=== PATIENT | male | born 1950 | race Caucasian/White ===

== ENCOUNTER 2018-03-04 12:37 | Observation (INO) | payer MEDICARE ==
--- NOTE | 2018-03-04 13:31 | ER ---
Nurse's Notes [facility] Name: Doug Ingram Age: 67 yrs Sex: Male : 1950 Arrival Date: 03/04/2018 Time: 12:40 Bed 13 Private MD: None, None Diagnosis: Torsion of testis Presentation: 03/04 13:05 Presenting complaint: Presenting complaint: Patient states: LLQ and testicular pain x 1 hb week, sent from radiology for poss testicular torsion. 13:08 Transition of care: patient was not received from another setting of care. Onset of hb symptoms is unknown. Initial Sepsis Screen: Does the patient meet any 2 criteria? No. Patient's initial sepsis screen is negative. Does the patient have a suspected source of infection? No. Patient's initial sepsis screen is negative. Care prior to arrival: None. 13:08 Method Of Arrival: Ambulatory hb 13:08 Acuity: CUAUHTEMOC 2 hb Historical: - Allergies: 13:10 caffeine; hb 13:10 Aspirin; hb - Home Meds: 14:00 atorvastatin oral oral [Active]; Glimepiride Oral [Active]; Metformin Oral [Active]; aa5 Naproxen Oral [Active]; pioglitazone oral oral [Active]; tamsulosin oral oral [Active]; Allopurinol Oral [Active]; cyanocobalamin (vitamin B-12) oral oral [Active]; Omeprazole Oral [Active]; - PMHx: 14:00 Diabetes - NIDDM; aa5 - PSHx: 14:00 None; aa5 - Immunization history:: Adult Immunizations up to date. - Social history:: Smoking status: Patient/guardian denies using tobacco. Screenin:40 Abuse screen: Denies threats or abuse. Nutritional screening: No deficits noted. aa5 Tuberculosis screening: No symptoms or risk factors identified. Fall Risk None identified. Assessment: 13:15 General: Appears comfortable, Behavior is calm, cooperative. Pain: Denies pain. Neuro: aa5 Level of Consciousness is awake, alert, obeys commands, Oriented to person, place, time, situation. Cardiovascular: Heart tones S1 S2 present Edema 3+ pitting edema noted to ladan lower extremities Rhythm is regular. Respiratory: Airway is patent Respiratory effort is even, unlabored, Respiratory pattern is regular, symmetrical. GI: No signs and/or symptoms were reported involving the gastrointestinal system. Patient currently denies nausea, vomiting. : No signs and/or symptoms were reported regarding the genitourinary system. EENT: No signs and/or symptoms were reported regarding the EENT system. Derm: Skin is pink, warm \\T\\ dry. Musculoskeletal: Range of motion: intact in all extremities. 14:00 Reassessment: Patient and/or family updated on plan of care and expected duration. Pain aa5 level reassessed. Patient is alert, oriented x 3, equal unlabored respirations, skin warm/dry/pink. 14:12 Reassessment: Report given to Yamileth Pat RN. aa5 14:29 Reassessment: Patient appears in no apparent distress at this time. Patient and/or ph family updated on plan of care and expected duration. Pain level reassessed. Patient is alert, oriented x 3, equal unlabored respirations, skin warm/dry/pink. Report given to OR, pt taken for surgery. Vital Signs: 13:06 BP 166 / 77; Pulse 82; Resp 16; Temp 98; Pulse Ox 96% on R/A; Pain 2/10; hb 14:00 BP 146 / 73; Pulse 73; Resp 18 S; Pulse Ox 98% on R/A; Pain 0/10; aa5 14:30 BP 147 / 79; Pulse 75; Resp 18; Temp 98.0; Pulse Ox 97% on R/A; ph ED Course: 12:40 Patient arrived in ED. mr 12:41 None, None is Private Physician. mr 13:09 Triage completed. hb 13:10 [facility] kb 13:10 Angel Diaz MD is Attending Physician. kb 13:10 Arm band placed on right wrist. hb 13:15 Patient has correct armband on for positive identification. aa5 13:25 Initial lab(s) drawn, by me, sent to lab. Inserted saline lock: 20 gauge in right aa5 forearm, using aseptic technique. Blood collected. 13:30 Elena Laboy MD is Hospitalizing Provider. kb 13:51 EKG done, by fiberglass technician. reviewed by Teresa DAWN. dt2 14:04 No provider procedures requiring assistance completed. aa5 14:20 Yamileth Pat RN is Primary Nurse. ph 14:21 X-ray completed. Portable x-ray completed in exam room. Patient tolerated procedure jb2 well. 14:32 Patient admitted, IV remains in place. ph Administered Medications: 13:25 Drug: D50W 50 ml Route: IVP; Site: right forearm; aa5 14:31 Follow up: Response: No adverse reaction; Blood sugar is elevated ph 13:30 Drug: D5-1/2 NS 1000 ml Route: IV; Rate: 75 ml; Site: right forearm; aa5 14:31 Follow up: IV Status: Infusion continued upon admission ph 13:40 Drug: Ancef 1 grams Route: IVPB; Site: right forearm; aa5 14:01 Follow up: Response: No adverse reaction; IV Status: Completed infusion; administered aa5 IVP per Hospital over 5 minutes. 13:55 Not Given (Other Intervention Used): NS 0.9% 1000 ml IV at 125 ml/hr continuous aa5 Point of Care Testing: Blood Glucose: 13:23 Blood Glucose: 46 mg/dL; aa5 14:12 Blood Glucose: 137 mg/dL; aa5 13:23 LABORER SAWMILL notified. Pt c/o feeling shaky, pt states "the last time I ate was around 7 am" aa5 Ranges: Intake: Outcome: 13:30 Decision to Hospitalize by Provider. kb 14:31 Admitted to OR accompanied by tech, via stretcher, with chart. ph 14:31 Condition: stable 14:31 Instructed on the need for admit. 14:32 Patient left the ED. ph Signatures: Teresa Garcia, LANDSCAPE ARCHITECT-C LANDSCAPE ARCHITECT-Ckb PuckettCarleen All Mcmahon jb2 Leonela Shea, RN RN aa5 Yamileth Pat RN RN ph Lorene Helms, JAVAD RN Regina Olmedo dt2 Corrections: (The following items were deleted from the chart) 13:09 13:05 Presenting complaint: hb hb 13:15 13:08 Acuity: CUAUHTEMOC 3 hb hb 13:16 13:05 Presenting complaint: Patient states: LLQ and testicular pain x 1 week Presenting hb complaint: Patient states: LLQ and testicular pain x 1 week hb 14:06 13:23 Blood Glucose: Notes=LABORER SAWMILL notified, Blood Glucose Reading=46 mg/dL. aa5 aa5
--- NOTE | 2018-03-04 13:31 | EDPHYS ---
Physician Documentation [facility] Name: Doug Ingram Age: 67 yrs Sex: Male : 1950 Arrival Date: 03/04/2018 Time: 12:40 Bed 13 Private MD: None, None ED Physician Angel Diaz HPI: 03/04 14:16 This 67 yrs old Male presents to ER via Ambulatory with complaints of kb Testicular Pain. 14:16 The patient presents with scrotal pain, of the left side. Onset: The symptoms/episode kb began/occurred last week. Modifying factors: The symptoms are alleviated by nothing, the symptoms are aggravated by nothing. Associated signs and symptoms: The patient has no apparent associated signs or symptoms. Severity of symptoms: At their worst the symptoms were severe, in the emergency department the symptoms are unchanged. The patient has not experienced similar symptoms in the past. The patient has not recently seen a physician. Pt reports left testicular pain that started last week and was intermittent. Today, pain became more severe and constant. Had outpatient US and was diagnosed with torsion and told to come to ER. . Historical: - Allergies: 13:10 caffeine; hb 13:10 Aspirin; hb - Home Meds: 14:00 atorvastatin oral oral [Active]; Glimepiride Oral [Active]; Metformin Oral [Active]; aa5 Naproxen Oral [Active]; pioglitazone oral oral [Active]; tamsulosin oral oral [Active]; Allopurinol Oral [Active]; cyanocobalamin (vitamin B-12) oral oral [Active]; Omeprazole Oral [Active]; - PMHx: 14:00 Diabetes - NIDDM; aa5 - PSHx: 14:00 None; aa5 - Immunization history:: Adult Immunizations up to date. - Social history:: Smoking status: Patient/guardian denies using tobacco. ROS: 14:16 Constitutional: Negative for fever, chills, and weight loss, Cardiovascular: Negative kb for chest pain, palpitations, and edema, Respiratory: Negative for shortness of breath, cough, wheezing, and pleuritic chest pain, Abdomen/GI: Negative for abdominal pain, nausea, vomiting, diarrhea, and constipation, MS/Extremity: Negative for injury and deformity, Skin: Negative for injury, rash, and discoloration, Neuro: Negative for headache, weakness, numbness, tingling, and seizure. 14:57 : Positive for testicular pain kb Exam: 14:57 Constitutional: This is a well developed, well nourished patient who is awake, alert, kb and in no acute distress. Head/Face: Normocephalic, atraumatic. Neck: Trachea midline, no thyromegaly or masses palpated, and no cervical lymphadenopathy. Supple, full range of motion without nuchal rigidity, or vertebral point tenderness. No Meningismus. Chest/axilla: Normal chest wall appearance and motion. Nontender with no deformity. No lesions are appreciated. Cardiovascular: Regular rate and rhythm with a normal S1 and S2. No gallops, murmurs, or rubs. Normal PMI, no JVD. No pulse deficits. Respiratory: Lungs have equal breath sounds bilaterally, clear to auscultation and percussion. No rales, rhonchi or wheezes noted. No increased work of breathing, no retractions or nasal flaring. Abdomen/GI: Soft, non-tender, with normal bowel sounds. No distension or tympany. No guarding or rebound. No evidence of tenderness throughout. Skin: Warm, dry with normal turgor. Normal color with no rashes, no lesions, and no evidence of cellulitis. MS/ Extremity: Pulses equal, no cyanosis. Neurovascular intact. Full, normal range of motion. Neuro: Awake and alert, GCS 15, oriented to person, place, time, and situation. Cranial nerves II-XII grossly intact. Motor strength 5/5 in all extremities. Sensory grossly intact. Cerebellar exam normal. Normal gait. Vital Signs: 13:06 BP 166 / 77; Pulse 82; Resp 16; Temp 98; Pulse Ox 96% on R/A; Pain 2/10; hb 14:00 BP 146 / 73; Pulse 73; Resp 18 S; Pulse Ox 98% on R/A; Pain 0/10; aa5 14:30 BP 147 / 79; Pulse 75; Resp 18; Temp 98.0; Pulse Ox 97% on R/A; ph MDM: 13:11 Patient medically screened. kb 13:24 Data reviewed: vital signs, nurses notes. Data interpreted: Pulse oximetry: on room air kb is 96 %. Interpretation: normal. Counseling: I had a detailed discussion with the patient and/or guardian regarding: the historical points, exam findings, and any diagnostic results supporting the discharge/admit diagnosis, lab results, radiology results, the need for further work-up and treatment in the hospital. Physician consultation: Jamil Sifuentes MD was contacted at 13:26, regarding consult, patient's condition, in the emergency department to see patient at 13:26. 03/04 13:24 Order name: CBC with Diff; Complete Time: 14:09 kb 03/04 13:24 Order name: Basic Metabolic Panel; Complete Time: 14:09 kb 03/04 13:24 Order name: Chest Single View XRAY kb 03/04 13:24 Order name: IV Start; Complete Time: 13:41 kb 03/04 13:24 Order name: EKG; Complete Time: 13:25 kb 03/04 13:24 Order name: EKG - Nurse/Tech; Complete Time: 13:41 kb 03/04 13:30 Order name: NPO; Complete Time: 13:41 kb 03/04 13:37 Order name: CONS Physician Consult; Complete Time: 13:55 EDMS Administered Medications: 13:25 Drug: D50W 50 ml Route: IVP; Site: right forearm; aa5 14:31 Follow up: Response: No adverse reaction; Blood sugar is elevated ph 13:30 Drug: D5-1/2 NS 1000 ml Route: IV; Rate: 75 ml; Site: right forearm; aa5 14:31 Follow up: IV Status: Infusion continued upon admission ph 13:40 Drug: Ancef 1 grams Route: IVPB; Site: right forearm; aa5 14:01 Follow up: Response: No adverse reaction; IV Status: Completed infusion; administered aa5 IVP per Hospital over 5 minutes. 13:55 Not Given (Other Intervention Used): NS 0.9% 1000 ml IV at 125 ml/hr continuous aa5 Point of Care Testing: Blood Glucose: 13:23 Blood Glucose: 46 mg/dL; aa5 14:12 Blood Glucose: 137 mg/dL; aa5 13:23 SAFETY GROOVING MACHINE OPERATOR notified. Pt c/o feeling shaky, pt states "the last time I ate was around 7 am" aa5 Ranges: Critical Glucose Levels:Adult <50 mg/dl or >400 mg/dl <40 mg/dl or >180 mg/dl Disposition: 20:55 Co-signature as Attending Physician, Angel Diaz MD. rn Disposition: 03/04/18 13:30 Hospitalization ordered by Elena Laboy for Observation. Preliminary diagnosis is Torsion of testis. - Bed requested for Telemetry/MedSurg (observation). - Status is Observation. ph - Condition is Stable. - Problem is new. - Symptoms are unchanged. UTI on Admission? No Signatures: Dispatcher [employer] EDMS Teresa Garcia, NAVAL AIRCREWMAN MECHANICAL-C NAVAL AIRCREWMAN MECHANICAL-Ckb Onelia marroquin Angel Gary MD MD rn Calderon, Audri RN RN aa Yamileth Pat RN RN Lorene Helms, RN RN Corrections: (The following items were deleted from the chart) 14:31 13:30 Hospitalization Ordered by Elena Laboy MD for Observation. Preliminary bd diagnosis is Torsion of testis. Bed requested for Telemetry/MedSurg (observation). Status is Observation. Condition is Stable. Problem is new. Symptoms are unchanged. UTI on Admission? No. kb 14:32 14:31 03/04/2018 13:30 Hospitalization Ordered by Elena Laboy MD for Observation. ph Preliminary diagnosis is Torsion of testis. Bed requested for Telemetry/MedSurg (observation). Status is Observation. Condition is Stable. Problem is new. Symptoms are unchanged. UTI on Admission? No. bd 14:57 14:16 Constitutional: Negative for fever, chills, and weight loss, Cardiovascular: kb Negative for chest pain, palpitations, and edema, Respiratory: Negative for shortness of breath, cough, wheezing, and pleuritic chest pain, Abdomen/GI: Negative for abdominal pain, nausea, vomiting, diarrhea, and constipation, MS/Extremity: Negative for injury and deformity, Skin: Negative for injury, rash, and discoloration, Neuro: Negative for headache, weakness, numbness, tingling, and seizure, kb
[2018-03-04] MEDS ORDERED: D50W 25 GM/50 ML SYRINGE IV ONE ×2 (13:36→16:31)
[2018-03-04] MEDS ORDERED: CEFAZOLIN/SWI 1gm 1 GM/10 ML SYR ONE (13:47)
[2018-03-04] MEDS ORDERED: D5 0.45 NS 1,000 ML IV ONE (13:47)
[2018-03-04 13:53] LABS: Absolute Lymphocytes (CBC) 2.2 K/uL (0.7-4.9); Absolute Monocytes 0.4 K/uL (0.1-1.3); Basophils % 0.4 % (0-1.3); Hematocrit 38.4 % (39.6-49.0); MPV 7.8 fL (7.6-11.3); Monocytes % 7.5 % (3.3-12.3); RBC Red Blood Cell Count 4.04 M/uL (4.33-5.43)
[2018-03-04 14:04] LABS: Potassium 3.9 mEq/L (3.6-5.0)
[2018-03-04] MEDS ORDERED: NA CHLORIDE 0.9% 1,000 ML ONE ×2 (14:38→16:26)
--- NOTE | 2018-03-04 14:38 | EKG ---
Test Date: 2018-03-04 Test Time: 13:35:43 Child Life Specialist: EZEKIEL MEASUREMENT RESULTS: Intervals: Rate: 72 NC: 150 QRSD: 100 QT: 380 QTc: 416 [place]: P: 45 NC: 150 QRS: 8 T: 43 INTERPRETIVE STATEMENTS: Normal sinus rhythm Moderate voltage criteria for LVH, may be normal variant Borderline ECG Compared to ECG 04/21/2010 11:10:51 No significant changes Electronically Signed On 03-04-18 14:38:18 CDT by Amol Powers
[2018-03-04] MEDS ORDERED: NA CIT/CITRIC AC 30 ML ORAL UDC ONE (14:41)
[2018-03-04] MEDS ORDERED: PROPOFOL 200 MG/20 ML VIAL IV ONE (14:53)
[2018-03-04] MEDS ORDERED: FENTANYL CITR 100 MCG/2 ML ONE (14:54)
[2018-03-04] MEDS ORDERED: LIDOCAINE 1% MPF 5 ML VIAL ONE (14:54)
--- NOTE | 2018-03-04 15:23 | P.HP ---
Certification for Inpatient Patient admitted to: Inpatient With expected LOS: >2 Midnights Patient will require the following post-hospital care: None Practitioner: I am a practitioner with admitting privileges, knowledge of patient current condition, hospital course, and medical plan of care. Services: Services provided to patient in accordance with Admission requirements found in Title 42 Section 412.3 of the Code of Federal Regulations Patient History Date of Service: 03/04/18 Primary Care Provider: None Reason for admission: Testicular Torsion History of Present Illness: This is a 67-year-old male with significant past medical history of type 2 diabetes who presented to the ED complaining of having some testicular pain about 1 week ago. Patient stated that the pain started as Dull and progressed to a sharp shooting pain in progressively got worse. Patient stated that initially he only had pain however started noticing some swelling as well around the area. The patient denies having any fever chills nausea vomiting abdominal pain or any other associated symptoms at this time. Patient is that this is the 1st time it has happened and headaches worse pain is 9/10. Patient states that it feels like someone is punching him every time he moves. In the ED patient had an ultrasound of the scrotal area which was consistent testicular Torsion and thus was admitted for further care. Allergies aspirin Allergy (Verified 01/14/15 14:13) Anaphylaxis caffeine Allergy (Verified 01/14/15 14:13) Shortness of breath Home Medications: Glimepiride [Amaryl*] 2 mg PO DAILY 01/14/15 Hydrochlorothiazide [Hydrochlorothiazide*] 12.5 mg PO DAILY 01/14/15 Metformin HCl [Metformin HCl ER] 1,000 mg PO BID 01/14/15 Omeprazole 20 mg PO DAILY 01/14/15 Sod Chloride/Jony/Mo/Pet,Wh [Lubriderm Daily Moisture Lot] 177 ml TP BID Spironolactone 25 mg PO BID 01/14/15 Tamsulosin [Flomax] 0.4 mg PO DAILY 01/14/15 - Past Medical/Surgical History Diabetic: Yes -: DM -: Gout -: GERD -: HTN -: Obesity - Social History Alcohol use: No Review of Systems General: As per HPI Physical Examination - Vital Signs Temperature: 98.0 F Blood Pressure: 147/79 Pulse: 75 Respirations: 18 - Physical Exam General: Alert, Oriented x3, Acute distress HEENT: Atraumatic Neck: Supple Respiratory: Clear to auscultation bilaterally, Normal air movement Cardiovascular: Regular rate/rhythm, Normal S1 S2 Gastrointestinal: Normal bowel sounds, No tenderness Musculoskeletal: No tenderness Integumentary: No rashes Neurological: Abnormal speech, Abnormal strength, Abnormal tone Lymphatics: No axilla or inguinal lymphadenopathy External genitalia: Edema, Tenderness - Studies Laboratory Data (last 24 hrs) 03/04/18 13:25: Sodium 140, Potassium 3.9, BUN 22 H, Creatinine 0.92, Glucose 66 03/04/18 13:25: WBC 5.8, Hgb 12.9 L, Hct 38.4 L, Plt Count 176 Assessment and Plan - Problems (Diagnosis) (1) Testicular torsion Current Visit: Yes Status: Acute Plan: Testicular Torsion on the CT -Urology Consulted. Pt is scheduled for OR procedure right now -IV fluids and NPO for now -Pain mgmt -IV abx (2) Diabetes Current Visit: No Status: Chronic Plan: Insulin Sliding scale Qualifiers: Diabetes mellitus type: type 2 Diabetes mellitus long-term insulin use: without intermodal owner operator truck driver use Diabetes mellitus complication status: without complication Qualified Code(s): E11.9 - Type 2 diabetes mellitus without complications (3) GERD (gastroesophageal reflux disease) Current Visit: No Status: Chronic Plan: Protonix Qualifiers: Esophagitis presence: without esophagitis Qualified Code(s): K21.9 - Gastro -esophageal reflux disease without esophagitis (4) Gout Current Visit: No Status: Chronic Plan: Restart Allopurinol Qualifiers: Gout site: unspecified site Gout etiology: unspecified cause Chronicity: unspecified Qualified Code(s): M10.9 - Gout, unspecified (5) Hypertension Current Visit: No Status: Chronic Plan: Restart Home medication Qualifiers: Hypertension type: essential hypertension Qualified Code(s): I10 - Essential (primary) hypertension Discharge Plan: Other Plan to discharge in: 48 Hours - Advance Directives Does patient have a Living Will: No Does patient have a Durable POA for Healthcare: No - Code Status/Comfort Care Code Status Assessed: Yes Critical Care: No
[2018-03-04] MEDS ORDERED: DEXAMETHASONE 10 MG/ML VIAL ONE (15:33)
[2018-03-04] MEDS ORDERED: KETOROLAC 30 MG/ML INJ ONE (15:34)
[2018-03-04] MEDS ORDERED: ONDANSETRON HCL 40 MG/20 ML VIAL ONE (15:34)
--- NOTE | 2018-03-04 15:39 | RAD REPORT ---
EXAM DESCRIPTION: Jodi Single View03/04/2018 2:31 pm CLINICAL HISTORY: Abdominal pain/preop COMPARISON: 2009 FINDINGS: The lungs appear clear of acute infiltrate. The heart is normal size. Aorta is tortuous/e ctatic IMPRESSION: No acute abnormalities displayed
[2018-03-04] MEDS ORDERED: Morphine 2 MG/2 ML SYR IV PRN (16:50)
[2018-03-04] MEDS ORDERED: ACETAMINOPHEN 500 MG TAB PO PRN (16:50)
[2018-03-04] MEDS ORDERED: HYDROCODONE/APAP 5/325 MG TAB PO PRN (16:50)
[2018-03-04] MEDS ORDERED: GLUCAGON 1 MG/VIAL IM PRN (16:50)
[2018-03-04] MEDS: INSULIN -REGULAR HUMAN 50 UNIT/0.5 ML ML SQ SCH ×2 (16:50→22:06)
[2018-03-04] MEDS ORDERED: ONDANSETRON 4 MG/2 ML VIAL IV PRN (16:50)
[2018-03-04] MEDS ORDERED: D50W 25 GM/50 ML SYRINGE IV PRN (16:50)
[2018-03-04 17:27] VITALS: BMI 33.3
[2018-03-04] MEDS: D5 0.45 NS 1,000 ML IV SCH (17:49)
--- NOTE | 2018-03-04 18:02 | CON ---
History Of Present Illness: Mr. Stone is a pleasant 67-year-old [facility] patient. He said for the last week or so, his left testicle has been hurting, will hurt for a while, and then stop hurting, but for the last 2 weeks, he has been doing that. He was seen by primary care in [place] and examined him for hernia. Everything was fine. Then, this morning, he woke up again with the pain. It did last f or a while and then stopped. He came in, had a Doppler ultrasound done showed no flow on the left si de, smaller testicle, about 2-3 cm. Right testis is about 4-3 cm. Past Medical History: Diabetes, gout, gastritis, cholesterol, and BPH. Medications: He takes medications; acetaminophen, allopurinol, B12, omeprazole, atorvastatin, glimep iride, metoprolol, Naprosyn, pioglitazone, and tamsulosin. Past Surgical History: None. Family History: He is adopted. None. Social History: Does not smoke, drink, or do any drugs. Allergies: TO CAFFEINE CAUSE ANAPHYLAXIS AND ASPIRIN CAUSES A RASH. Review of Systems: Ten-point review of system otherwise normal. No nausea, no vomiting. Physical Examination: HEENT: Atraumatic, normocephalic. Vital signs: Stable. Lungs: Clear. Abdomen: Soft, nontender. : Left testicle is smaller than the right. It is not twisted. Not painful. No hernia palpable. LEIGHTON: Deferred. Laboratories: Pending. Assessment: Intermittent left torsion. Plan: Plan is for scrotal exploration, possible orchiectomy, possible bilateral orchiopexies, and an y indicated procedures. The patient knows the risks and benefits and wishes to proceed. DEBBY/MARILUZ Voice ID: [id number] Report ID: [id number]
[2018-03-04] MEDS ORDERED: CEFAZOLIN/NS 1gm 1 GM/50 ML BAG IVPB SCH (22:00)
[2018-03-04 22:30] LABS: Urine Appearance CLEAR; Urine Bilirubin NEGATIVE (NEG); Urine Blood 2+ (NEG); Urine Color YELLOW; Urine Glucose 1+ (NEG); Urine Protein NEGATIVE (NEG); Urine Specific Gravity 1.015 (1.005-1.030)
[2018-03-04 22:58] LABS: Urine Microscopic Reflex ORDER UMIC
[2018-03-04 23:06] LABS: Urine Bacteria <20 /HPF (NONE SEEN); Urine Culture Reflex Order REFLEXED
[2018-03-05] MEDS: CEFAZOLIN/SWI 1gm 1 GM/10 ML SYR IV SCH ×2 (01:00→09:34)
[2018-03-05 04:51] VITALS: O2SAT 94
[2018-03-05 05:00] LABS: Absolute Lymphocytes (CBC) 0.8 K/uL (0.7-4.9); Absolute Monocytes 0.1 K/uL (0.1-1.3); Absolute Neutrophil 6.9 K/uL (1.8-8.0); Basophils % 0.1 % (0-1.3); Hematocrit 38.3 % (39.6-49.0); Lymphocytes % 10.1 % (15.3-44.8); MCH 32.1 pg (27.0-35.0); MCV 95.2 fL (80-100); MPV 8.2 fL (7.6-11.3); Monocytes % 1.3 % (3.3-12.3); RBC Red Blood Cell Count 4.02 M/uL (4.33-5.43)
[2018-03-05 05:23] LABS: Potassium 4.3 mEq/L (3.6-5.0)
[2018-03-05 05:51] LABS: Blood Morphology Comment NOT SEEN (NOT SEEN); Platelet Estimate ADEQ; Urine White Blood Cell Casts OK
[2018-03-05] MEDS: D5 0.45 NS 1,000 ML IV SCH (06:08)
[2018-03-05] MEDS: INSULIN -REGULAR HUMAN 50 UNIT/0.5 ML ML SQ SCH (09:34)
[2018-03-05 10:15] VITALS: BP 129/60; TEMP 98.3
--- NOTE | 2018-03-05 14:13 | PN ---
Subjective: The Patient feels great. He is experiencing no more pains in the scrotum like before. Objective: Vital Signs: 98 temperature, 88 pulse, 16 respirations, 130/70 BP, and 95% sat. Pain 0/ 10. Urine output good. Aguilar catheter was removed this morning. : Wound intact. Claude drains intact bilaterally. Dressing was still soaked, was changed at 6:00 a.m. Therefore, we will change it again and sent home on dressing changes and hopefully remove it tomorrow in the office. DEBBY/MARILUZ Voice ID: [id number] Report ID: [id number]
--- NOTE | 2018-03-05 14:29 | P.SSS ---
Patient History Date of Service: 03/05/18 Primary Care Provider: None Reason for admission: Testicular Torsion History of Present Illness: This is a 67-year-old male with significant past medical history of type 2 diabetes who presented to the ED complaining of having some testicular pain about 1 week ago. Patient stated that the pain started as Dull and progressed to a sharp shooting pain in progressively got worse. Patient stated that initially he only had pain however started noticing some swelling as well around the area. The patient denies having any fever chills nausea vomiting abdominal pain or any other associated symptoms at this time. Patient is that this is the 1st time it has happened and headaches worse pain is 9/10. Patient states that it feels like someone is punching him every time he moves. In the ED patient had an ultrasound of the scrotal area which was consistent testicular Torsion and thus was admitted for further care. Allergies aspirin Allergy (Verified 03/04/18 17:30) Anaphylaxis caffeine Allergy (Verified 03/04/18 17:30) Shortness of breath Home Medications: Glimepiride [Amaryl*] 2 mg PO DAILY 01/14/15 Hydrochlorothiazide [Hydrochlorothiazide*] 12.5 mg PO DAILY 01/14/15 Metformin HCl [Metformin HCl ER] 1,000 mg PO BID 01/14/15 Omeprazole 20 mg PO DAILY 01/14/15 Sod Chloride/Jony/Mo/Pet,Wh [Lubriderm Daily Moisture Lot] 177 ml TP BID Spironolactone 25 mg PO BID 01/14/15 Tamsulosin [Flomax] 0.4 mg PO DAILY 01/14/15 Cephalexin [Keflex] 500 mg PO Q6HR #12 cap 03/05/18 traMADol HCL [Ultram] 50 mg PO Q6H PRN #12 tab 03/05/18 - Past Medical/Surgical History Has patient received pneumonia vaccine in the past: Yes Diabetic: Yes -: DM -: Benign Prostate Hypertrophy -: Lymphedema -: Gout -: GERD -: HTN -: Obesity -: Chronic Back Pain - Social History Smoking Status: Never smoker Alcohol use: No Review of Systems General: As per HPI Physical Examination - Vital Signs Temperature: 98.3 F Blood Pressure: 129/60 Pulse: 103 Respirations: 18 Pulse Ox (%): 96 - Physical Exam General: Alert, In no apparent distress HEENT: Atraumatic, PERRLA, Mucous membr. moist/pink, EOMI, Sclerae nonicteric Neck: Supple, 2+ carotid pulse no bruit, No LAD, Without JVD or thyroid abnormality Respiratory: Clear to auscultation bilaterally, Normal air movement Cardiovascular: Regular rate/rhythm, Normal S1 S2 Gastrointestinal: Normal bowel sounds, No tenderness Musculoskeletal: No tenderness Integumentary: No rashes Neurological: Normal gait, Normal speech, Normal strength at 5/5 x4 extr, Normal tone, Normal affect Lymphatics: No axilla or inguinal lymphadenopathy - Diagnosis (Problem(s)) (1) Testicular torsion Onset Date: 03/05/18 Status: Acute Plan: S/P Surgical Procedure. Doing well overall. No complains to offer -DC with Keflex and Ultram (2) Diabetes Onset Date: 03/05/18 Status: Chronic Qualifiers: Diabetes mellitus type: type 2 Diabetes mellitus chcf insulin use: without chcf use Diabetes mellitus complication status: without complication Qualified Code(s): E11.9 - Type 2 diabetes mellitus without complications (3) GERD (gastroesophageal reflux disease) Onset Date: 03/05/18 Status: Chronic Plan: Protonix Qualifiers: Esophagitis presence: without esophagitis Qualified Code(s): K21.9 - Gastro -esophageal reflux disease without esophagitis (4) Gout Status: Chronic Plan: Restart Allopurinol Qualifiers: Gout site: unspecified site Gout etiology: unspecified cause Chronicity: unspecified Qualified Code(s): M10.9 - Gout, unspecified (5) Hypertension Onset Date: 03/05/18 Status: Chronic Plan: Restart Home medication Qualifiers: Hypertension type: essential hypertension Qualified Code(s): I10 - Essential (primary) hypertension - Disposition Condition: GOOD Patient Discharge Instructions: Please f/u with Dr Sifuentes in 1 week post discharge. New medication. Ultram. keflex Diet: Regular Activity: Ad nicola
== END 2018-03-05 12:40 | disposition home or self-care (01) ==
LOC: ER 12:37 → ERHOLD 13:33 → 2ND 17:02
PROVIDERS: ADMIT Physician Assistant; ATTEND Family Medicine
PROC: 0VSC0ZZ Reposition Bilateral Testes, Open Approach (ICD-10-PCS; principal; 2018-03-04 15:00)
DX: N44.00 Torsion of testis, unspecified (principal); E11.9 Type 2 diabetes mellitus without complications; M10.9 Gout, unspecified; I10 Essential (primary) hypertension; K21.9 Gastro-esophageal reflux disease without esophagitis; Z91.018 Allergy to other foods; Z88.6 Allergy status to analgesic agent
CPT/HCPCS: 36415; 54640; 71045; 80048 ×2; 82962 ×8; 85025 ×2; 87086; 93005; 96361; 96365; 96375; 99285; G0378 ×2; J0690 ×3; J1100; J2405; J3010; J7030 ×2; 81003; 81015; 87088